=== PATIENT | male | born 1980 | race Caucasian/White ===

== ENCOUNTER 2017-12-05 21:36 | Emergency (ER) | payer SELFPAY ==
[~2017-12-05] VITALS: Ht 162.6 cm; Wt 82.6 kg
[2017-12-05 21:51] VITALS: Ht 162.6 cm; Wt 82.6 kg
[2017-12-05 22:56] VITALS: BP 130/69
== END 2017-12-05 22:56 | disposition home or self-care (01) ==
LOC: ED 21:36
DX: J01.90 Acute sinusitis, unspecified (principal)